=== PATIENT | female | born 1995 | race African-American/Black ===

== ENCOUNTER 2024-05-15 13:15 | Outpatient (CLI) | payer OTHER, SELFPAY | END 2024-05-15 13:16 | disposition home or self-care (01) | LOC: ANHLAB 13:18 | PROVIDERS: PCP Family Medicine; Visit Provider Obstetrics & Gynecology | DX: N92.0 Excessive and frequent menstruation with regular cycle (principal) | CPT/HCPCS: 36415; 84443 ==